=== PATIENT | female | born 1955 | race Caucasian/White ===

== ENCOUNTER 2024-04-13 12:50 | Outpatient (OUT) | payer MEDICARE, SELFPAY ==
--- NOTE | 2024-04-13 | XR_ITS ---
The [address] [address] Patient Name: RONA PORRAS MRN: [id number] date: 1955 Sex: F Assigned Patient Location: Current Patient Location: Accession/Order Number: [id number] Exam Date: 04/13/2024 12:56 Report Date: 04/13/2024 14:33 At the request of: ROSA WHITMORE Procedure: XR foot LT min 3V EXAM: XR foot LT min 3V HISTORY: LEFT FOOT PAIN COMPARISON: None. TECHNIQUE: 3 views of the left foot were obtained. FINDINGS: There is no apparent acute fracture or dislocation. There is prominent narrowing of the first metatarsophalangeal joint accompanied by subchondral cystic and sclerotic changes in the metatarsal head and prominent osteophytes with mild bunion deformity. Significant degenerative changes are also seen at the first and second tarsometatarsal joints and at the joint space between the navicular bone and the medial cuneiform bone. Osteophytes arise from the posterior calcaneus. Soft tissue swelling about the foot is noted diffusely. XR/XR foot LT min 3V IMPRESSION: Significant degenerative changes are seen along the medial aspect of the foot, particularly prominent at the first metatarsophalangeal joint. There is no evidence of an acute fracture or dislocation. Direct comparison with a previous study may be helpful in determining the chronicity of these findings. Electronically authenticated by: ROSA BENSON Date: 04/13/2024 14:33
--- NOTE | 2024-04-13 | XR_ITS ---
The [address] [address] Patient Name: RONA PORRAS MRN: [id number] date: 1955 Sex: F Assigned Patient Location: Current Patient Location: Accession/Order Number: [id number] Exam Date: 04/13/2024 12:56 Report Date: 04/13/2024 14:30 At the request of: ROSA WHITMORE Procedure: XR ankle LT min 3V EXAM: XR ankle LT min 3V HISTORY: LEFT ANKLE PAIN COMPARISON: None. TECHNIQUE: 3 views of the left ankle were obtained. FINDINGS: There is no apparent acute fracture or dislocation. The mortise is intact. No osteochondral injury is identified. The subtalar joints are intact. Osteophytes arise from the posterior calcaneus. Prominent diffuse soft tissue swelling is noted. XR/XR ankle LT min 3V IMPRESSION: No acute fracture or dislocation. The joint spaces are intact. Prominent soft tissue swelling is noted diffusely. Electronically authenticated by: ROSA BENSON Date: 04/13/2024 14:30
== END 2024-04-13 12:51 | disposition home or self-care (01) ==
PROVIDERS: Family Provider Family Medicine; Visit Provider Podiatrist Foot & Ankle Surgery
DX: M25.572 Pain in left ankle and joints of left foot (principal); M79.672 Pain in left foot; M25.472 Effusion, left ankle
CPT/HCPCS: 73610; 73630